=== PATIENT | female | born 1960 | race Caucasian/White ===

== ENCOUNTER 2017-01-06 13:47 | Inpatient (IN) ==
--- NOTE | 2017-01-06 15:44 | PROVIDER DOCUMENTATION ---
HPI-General Adult - General Chief Complaint: General Adult Stated Complaint: WEAKNESS Time Seen by Provider: 01/06/17 15:21 Source: patient Allergies/Adverse Reactions: Patient Allergies Allergy/AdvReac Type Severity Reaction Status Date / Time No Known Allergies Allergy Verified 01/06/17 13:59 Home Medications: Home Medication List Medication Instructions Recorded Confirmed Last Taken Type Aspirin 81 mg PO DAILY 12/31/13 01/03/17 04/15/16 History Atenolol 50 mg PO BID 12/31/13 01/03/17 04/15/16 History Fluconazole [Diflucan] 150 mg PO ONCE #1 tablet 01/03/17 Unknown Rx Nitrofurantoin [place]/Macrocryst 100 mg PO BID #14 capsule 01/03/17 Unknown Rx [Macrobid] Phenazopyridine HCl [Pyridium] 200 mg PO TID #6 tablet 01/03/17 Unknown Rx Sitagliptin [Januvia] 50 mg PO DAILY 01/03/17 01/03/17 Unknown History - History of Present Illness -Gen Adult Nature of Presenting Problems: 56 y/o F presents to the ED with c/o weakness x 3 days. Pt states currently being tx for UTI. Reports that she has just wanted to sleep over the last several days. Denies any use of other medications. Reports decreased smoking over last 3-4 days. Pt appears to be mildly intoxicated during exam. Review of Systems - Adult - REVIEW OF SYSTEMS - ADULT Constitutional: reports: no symptoms reported. denies: chills, fever Eyes: reports: no symptoms reported. denies: blurred vision, double vision Ears, Nose, Mouth & Throat: reports: no symptoms reported. denies: ear pain, nose pain Cardiovascular: reports: no symptoms reported. denies: chest pain, palpitations Respiratory: reports: no symptoms reported. denies: dyspnea on exertion, shortness of breath Gastrointestinal: reports: no symptoms reported. denies: abdominal pain, nausea , vomiting Genitourinary: reports: no symptoms reported. denies: dysuria, frequency, flank pain Musculoskeletal: reports: no symptoms reported. denies: joint pain, joint swelling Integumentary: reports: no symptoms reported. denies: nail changes, rash Neurological: reports: see HPI, other. denies: numbness, paresthesia Psychiatric: reports: no symptoms reported Endocrine: reports: no symptoms reported. denies: cold intolerance, heat intolerance Hematologic/Lymphatic: reports: no symptoms reported. denies: easy bruising, prolonged bleeding Allergic/Immunologic: reports: no symptoms reported All Other Systems: Reviewed and Negative Past History - Adult - PAST MEDICAL HISTORY-ADULT Review of Records: reports: Nursing Assessment Review, Medications Reviewed Major Childhood Illnesses: reports: denies history Cardiovascular: reports: HTN Respiratory: reports: denies history Gastrointestinal: reports: denies history Obstetrical/Gynecological: reports: denies history Genitourinary: reports: denies history Musculoskeletal: reports: chronic pain, intervertebral disc disease Neurological: reports: TIA Psychiatric: reports: anxiety Endocrine/Immune: reports: denies history Other Conditions: reports: denies history - PRIOR SURGERIES/PROCEDURES Surgical/Procedure History: reports: BTL, back/neck - IMMUNIZATION STATUS Childhood Immunizations: See Nurse Assessment Flu Vaccine: See Nurse Assessment - FAMILY HISTORY Family History: reviewed, not pertinent - SOCIAL HISTORY Smoking: cigarettes, less than 1 pack/day Provider spent 3-5 mins advising pt. on dangers of tobacco.: Discussed manners to quit use, and f/u contacts for add'l counseling. Physical Exam-General - PHYSICAL EXAM-ADULT Initial Vital Signs Reviewed: Yes - CONSTITUTIONAL General Appearance: slow to respond - EYES Eyes: PERRL/EOMI, pink conjunctivae. negative: EOM palsy - HEAD, EARS, NOSE, MOUTH & THROAT HENMT: normocephalic/atraumatic, pharynx normal. negative: moist mucous membranes (pt appears to have dry mouth) - NECK Neck: full range of motion, supple, normal inspection - RESPIRATORY Respiratory: lungs clear, normal breath sounds. negative: crackles, rales, rhonchi, stridor, wheezing - CARDIOVASCULAR Cardiovascular: regular rate, rhythm. negative: bradycardia, tachycardia - MUSCULOSKELETAL Back Exam: normal inspection Extremity: normal gait - SKIN Integumentary: normal color, normal turgor, warm/dry - NEUROLOGIC Neurologic: negative: aphasia, facial droop, focal weakness, motor weakness, sensory deficit - PSYCHIATRIC Psych/Mental Status: normal mood/affect, normal thought content, normal thought process, oriented x 3 Progress - PLAN OF CARE/RESULTS Progress/Plan/Lab Results: Vital Signs - 8 hr 01/06/17 13:56 Temperature 99.3 F Pulse Rate 89 Respiratory Rate 16 Blood Pressure 122/86 O2 Sat by Pulse Oximetry 92 L Orders Category Date Time Status ALCOHOL BLOOD Stat Lab 01/06/17 15:36 Ordered CBC WITH ELECTRONIC DIFF [HEME] Stat Lab 01/06/17 15:36 Ordered COMPREHENSIVE METABOLIC PANEL [CHEM] Stat Lab 01/06/17 15:36 Ordered PROTIME WITH INR PL [COAG] Stat Lab 01/06/17 15:[address] [COAG] Stat Lab 01/06/17 15:[address] W/POSS RFLX CULT [URINALYSIS] Stat Lab 01/06/17 15:22 Uncollected URINE DRUG SCREEN PL Stat Lab 01/06/17 15:36 Uncollected Discuss[address] pt with Dr. Shah; he agreed with tx plan. Discussed admission with pt. Result Diagrams: 01/06/17 15:45 01/06/17 15:45 - XRAY 1 XRAY Study: Chest Impression: See EMR Report (bibasilar infiltrates, worse on L than R -per Dr. Be) - CONSULTS/PCP/HOSPITALIST Notification #1 *Consult/PCP/Hospitalist*: Dr. Patel Time Discussed: 18:10 Reason/Comments: bilat infiltrates, hypoxia Consult Disposition: Admit Departure - Departure Time of Disposition Decision: 18:15 DIAGNOSIS: Pneumonia Qualifiers: Pneumonia type: due to unspecified organism Laterality: right Lung location: unspecified part of lung Qualified Code(s): J18.9 - Pneumonia, unspecified organism Disposition: ADMITTED INPATIENT 09 Certified Medical Emergency: Emergent Condition: Stable Referrals and Follow-Ups: Clare Lewis CRNP [Primary Care Provider] - Attestation - Physician/ KIANA Attestation Patient care was provided by Advanced Practice Provider:: Yes Advanced Practice Provider:: Tamika Garay Advanced Practice Provider documentation review:: The Mid-level provider documentation, treatment plan and medical decision making was reviewed by the physician who agrees with all treatment and medical decision making by the MLP.
[2017-01-06 15:51] LABS: UR AMPHETAMINES QUAL NONE DETECTED (NONE DETECT); UR BARBITUATES QUAL NONE DETECTED (NONE DETECT); UR BENZODIAZEPIN QUAL PRESUMPTIVE POSITIVE (NONE DETECT); UR CANNABINOIDS QUAL NONE DETECTED (NONE DETECT); UR COCAINE QUAL NONE DETECTED (NONE DETECT); UR MDMA QUAL NONE DETECTED (NONE DETECT); UR METHADONE QUAL NONE DETECTED (NONE DETECT); UR METHAMPHETAMINE QUAL NONE DETECTED (NONE DETECT); UR OPIATES QUAL NONE DETECTED (NONE DETECT); UR OXYCODONE QUAL NONE DETECTED (NONE DETECT); UR PCP QUAL NONE DETECTED (NONE DETECT); UR TCA QUAL NONE DETECTED (NONE DETECT)
[2017-01-06 15:55] LABS: MANUAL DIFF NEEDED? NO
[2017-01-06 15:58] LABS: BASO% 0.2 % (0.0-0.8); EOS# 0.35 X1000 (0.0-0.7); EOS% 2.1 % (0.0-10.0); HEMATOCRIT 47.1 % (37.0-47.0); HEMOGLOBIN 15.8 g/dL (12.0-16.0); IMM GRAN# 0.06 X1000 (0.0-0.04); IMM GRAN% 0.4 % (0.0-0.5); LYMPH# 1.58 X1000 (1.2-3.4); LYMPH% 9.3 % (20.5-51.1); MCHC 33.5 g/dL (33-37); MCV 86.4 FL (81-99); MONO# 0.71 X1000 (0.11-0.59); MONO% 4.2 % (1.7-9.3); MPV 10.6 FL (7.4-10.4); NEUT% 83.8 % (42.2-75.2); PLT 194 X1000 (130-400); RBC 5.45 XMIL (4.2-5.4)
[2017-01-06 16:08] LABS: BILIRUBIN URINE NEGATIVE (NEGATIVE); BLOOD URINE 3+ (NEGATIVE); CLARITY SL. CLOUDY (CLEAR); COLOR AMBER; GLUCOSE URINE NEGATIVE (NEGATIVE); LEUKOCYTES URINE TRACE (NEGATIVE); NITRITE URINE NEGATIVE (NEGATIVE); PROTEIN URINE TRACE mg/dL (NEGATIVE)
[2017-01-06 16:09] LABS: URINE CAST NONE SEEN /LPF; URINE CRYSTAL NONE SEEN /HPF; URINE CULTURE PL NEEDED? YES; URINE EPITHELIAL CELLS >10 /HPF (<10); URINE SOURCE CLEAN CATCH; URINE WBC <10 /HPF (<10)
[2017-01-06 16:14] LABS: INR 1.07 (0.86-1.15); PROTIME 14.2 Seconds (12.1-15.5); PTT PL 28.1 Seconds (22.6-43.9)
[2017-01-06 16:29] LABS: AGAP 13; ALBUMIN 3.7 g/dL (3.5-5.0); ALKALINE PHOSPHATASE 136 U/L (32-104); BUN 9 mg/dL (8-22); CALCIUM 8.7 mg/dL (8.8-10.2); CHLORIDE 94 mmol/L (98-107); COSMO 264; GOT 21 U/L (10-30); GPT 18 U/L (10-36); POTASSIUM 4.3 mmol/L (3.5-5.1); SODIUM 130 mmol/L (136-145); TCO2 22 mmol/L (25-35); TOTAL PROTEIN 7.2 g/dL (6.3-8.3)
[2017-01-06 16:34] LABS: UROBILINOGEN URINE 3+(8 mg/dL)
--- NOTE | 2017-01-06 17:43 | Diag Imaging Result Document ---
PROCEDURE NAME: CHEST-2 VIEWS - 01/06/2017 FRONTAL AND LATERAL CHEST, 2 VIEWS. COMPARISON: Compared to 06/02/2015. FINDINGS: The lungs are well expanded. The heart is not enlarged. There are basilar infiltrates. No pleural effusions. No free air beneath the diaphragm. IMPRESSION: Bibasilar infiltrates more pronounced on the right.
[2017-01-06] MEDS ORDERED: ROCEPHIN 1 GM/NS 1 GM/50 ML IVPB IV ONE (18:21)
[2017-01-06] MEDS ORDERED: XANAX PO PRN (20:49)
[2017-01-06] MEDS ORDERED: NORCO-7.5 PO PRN (20:49)
[2017-01-06] MEDS: TENORMIN PO SCH (22:05)
[2017-01-06] MEDS: NEURONTIN PO SCH (22:05)
[2017-01-07 06:19] LABS: HEMATOCRIT 43.5 % (37.0-47.0); HEMOGLOBIN 14.3 g/dL (12.0-16.0); MCH 28.8 PG (27-31); MCHC 32.9 g/dL (33-37); MCV 87.5 FL (81-99); MPV 11.1 FL (7.4-10.4); RBC 4.97 XMIL (4.2-5.4)
[2017-01-07 06:34] LABS: AGAP 11; ALBUMIN 3.2 g/dL (3.5-5.0); ALKALINE PHOSPHATASE 126 U/L (32-104); BUN 13 mg/dL (8-22); CALCIUM 8.4 mg/dL (8.8-10.2); CHLORIDE 99 mmol/L (98-107); COSMO 279; GOT 15 U/L (10-30); GPT 15 U/L (10-36); POTASSIUM 3.5 mmol/L (3.5-5.1); SODIUM 135 mmol/L (136-145); TCO2 25 mmol/L (25-35); TOTAL PROTEIN 6.3 g/dL (6.3-8.3)
[2017-01-07] MEDS: WELLBUTRIN XL PO SCH (08:51)
[2017-01-07] MEDS: TENORMIN PO SCH ×3 (08:51→21:39)
[2017-01-07] MEDS: ASPIRIN PO SCH (08:51)
[2017-01-07] MEDS: PRAVACHOL PO SCH (08:51)
[2017-01-07] MEDS: GLUCOTROL XL PO SCH (08:51)
[2017-01-07] MEDS: JANUVIA PO SCH (08:51)
[2017-01-07] MEDS ORDERED: HUMALOG DOSE (PARKWAY) SUBQ ONE (11:02)
--- NOTE | 2017-01-07 11:22 | HISTORY AND PHYSICAL ---
SUBJECTIVE: The patient notes that she is generally tired, fatigued. She has been weak. She has had increased coughing for the last 3-4 days. She notes that she has been too short of breath to actually smoke and has decreased this over the last couple of days. She has had a nonproductive cough. She has had low-grade fevers. She notes that she has been having back pain, but states this has been chronic since her back surgery. ALLERGIES: No known drug allergies. MEDICATIONS: Aspirin 81, atenolol 50 b.i.d., Diflucan 150, Macrobid per recent UTI, Januvia 50. REVIEW OF SYSTEMS: Patient states that she has only had fever over the past day; this was what made her to come to the hospital. She has been having some symptoms of urinary tract infection. Recently saw her primary care physician and was given Macrobid. Notes that the cough continued to worsen. As her shortness of breath became more severe, she came to the emergency department. She denies any current chest pain, palpitations. Denies any fevers or chills currently. Denies any current dysuria or flank pain. Denies any diarrhea, constipation, melena, hematochezia. PAST MEDICAL HISTORY: Hypertension, history of TIA, chronic back pain secondary to intervertebral disk disease, chronic anxiety, diabetes and hypertension. FAMILY HISTORY: Noncontributory. SOCIAL HISTORY: Patient does not drink. She continues to smoke; she has been trying to quit, but still smokes close to a pack a day. PHYSICAL EXAMINATION: VITAL SIGNS: Temp 99, pulse 89, respiratory 16, BP 122/86. GENERAL: Patient is awake, alert, oriented. She is in no current respiratory distress. She is pleasant to talk with. HEENT: Normocephalic. NECK: Supple. CV: Regular rate. CHEST: Relatively clear. No apparent wheezing, but she also just finished her breathing treatment. ABDOMEN: Soft. EXTREMITIES: Moves all extremities. NEUROLOGIC: No changes. LABS: WBC 16.9, hemoglobin and hematocrit 15 and 47. Sodium 130, potassium 4.3, creatinine 0.7. X-RAYS: Chest x-ray demonstrates bibasilar infiltrates, left greater than right. ASSESSMENT: 1. Bilateral basilar pneumonia. 2. Generalized weakness. 3. Fever. 4. Hypertension. 5. Diabetes. 6. Leukocytosis. 7. Hyponatremia. 8. Elevated bilirubin of undetermined significance. 9. Systemic inflammatory response syndrome secondary to her pneumonia. PLAN: We will admit patient to the hospital. IV antibiotics. IV fluids. We will continue her home medications for blood sugar, cholesterol, blood pressure and will follow. cc: Rohit Patel MD
--- NOTE | 2017-01-07 11:30 | PROGRESS NOTE ---
DATE: 01/07/2017 SUBJECTIVE: The patient notes that she feels okay just from a breathing standpoint this morning, but she is still weak and tired. Notes that she is a little dizzy but denies any current chest pains or palpitations. Denies any fevers or chills. The cough is nonproductive. OBJECTIVE: Vital Signs: Temperature 97 degrees, pulse 83, respiratory rate 20, blood pressure 152/85, saturating 98% on 2 L. General: Patient is awake, alert. She is currently in no real respiratory distress. She is standing up at the side of the bed. She is dizzy on her feet. That she is awake, alert. Speech is regular. Memory is intact. Neck: Supple. Cardiovascular: Regular rate. Chest: Relatively clear. No current wheezing. Abdomen: Soft. Extremities: Moves all extremities. Neurologic: No changes. DIAGNOSTIC DATA: WBCs 7, sodium 135, glucose 223, calcium 8.7. Bilirubin 0.7. ASSESSMENT: 1. Bibasilar pneumonia. Continue Rocephin. Continue breathing treatments. 2. Hyponatremia resolved. 3. Hyperbilirubinemia resolved. 4. Diabetes with hyperglycemia. Continue sliding scale insulin. Restart her home medications. 5. Leukocytosis resolved. 6. Sepsis secondary to pneumonia resolved. PLAN: We will continue Rocephin. Continue sliding scale insulin. We will continue to follow. Further orders as needed. cc: Rohit Patel MD
[2017-01-07 11:42] LABS: HEMOGLOBIN A1C 9.7 % (4.8-6.0)
--- NOTE | 2017-01-07 15:03 | Diag Imaging Result Document ---
PROCEDURE NAME: HEAD W/O CONTRAST - 01/07/2017 CT BRAIN WITHOUT CONTRAST. TECHNIQUE: Dose reduction protocol. COMPARISON: Compared to 01/07/2016. FINDINGS: No parenchymal hemorrhage. No epidural or subdural hematoma. No subarachnoid hemorrhage. No mass identified on this noncontrasted exam. No hydrocephalus. No sinus opacification. IMPRESSION: No hemorrhage. Negative brain CT without contrast. A preliminary report was given at 2:39 p.m.
[2017-01-07] MEDS ORDERED: ROCEPHIN 1 GM/NS 1 GM/50 ML IVPB IV SCH (18:00)
[2017-01-07] MEDS: NEURONTIN PO SCH ×2 (19:57→21:39)
[2017-01-08 06:21] VITALS: BP 116/64
[2017-01-08] MEDS: ASPIRIN PO SCH (09:32)
[2017-01-08] MEDS: WELLBUTRIN XL PO SCH (09:32)
[2017-01-08] MEDS: GLUCOTROL XL PO SCH (09:32)
[2017-01-08] MEDS: TENORMIN PO SCH (09:32)
[2017-01-08] MEDS: JANUVIA PO SCH (09:32)
[2017-01-08] MEDS: PRAVACHOL PO SCH (09:32)
[2017-01-08] MEDS ORDERED: PNEUMOVAX 23 IM ONE (12:03)
--- NOTE | 2017-01-09 04:57 | DISCHARGE SUMMARY ---
ADMISSION DATE: 01/06/2017 DISCHARGE DATE: 01/08/2017 DISCHARGE DIAGNOSES: 1. Bilateral basilar pneumonia, improved. 2. Generalized weakness, resolved. 3. Fever, resolved. 4. Hypertension, stable. 5. Diabetes, stable. 6. Leukocytosis, resolved. 7. Sepsis with leukocytosis, hypoxemia, fever, and pneumonia, resolved. 8. Hyponatremia, resolved. Sodium 135 on discharge. 9. Diabetes with hyperglycemia, stable. CONSULTATIONS: None. PROCEDURES: None. BRIEF HOSPITAL COURSE: The patient is a 56-year-old female who was admitted as on the [facility], diagnosed with sepsis secondary to pneumonia. She was continued on home medications, including her diabetic medications. Her blood sugars were controlled easily with the sliding scale insulin. She was placed on Rocephin in the hospital, which she tolerated very well. On discharge, she is awake, alert. She is oriented, she is in no distress. Will be discharged home. DISPOSITION: Patient will be discharged home. She will continue Omnicef at home for the next 7 days. She will continue her home diabetic medications. Continue to follow her diet for her diabetes. She will follow up with Clare Chilel in 1-2 weeks, sooner should symptoms worsen or return. Thirty-five minutes was spent in discharge planning instructions. cc: Rohit Patel MD
== END 2017-01-08 14:20 | disposition home or self-care (01) ==
LOC: P.ED 13:47 → P.MEDSURG 18:45
PROVIDERS: ATTEND Family Medicine